=== PATIENT | female | born 1935 | race Caucasian/White ===

== ENCOUNTER 2020-03-31 15:41 | Inpatient (IN) | payer MEDICARE, MEDICAID ==
[~2020-03-31] VITALS: Ht 152.4 cm; Wt 77.1 kg
[~2020-03-31 15:41] MED LIST: ATIVAN; [UNRECOGNIZED DRUG - OTHER]
[2020-03-31] MEDS ORDERED: aspirin (15:51)
[2020-03-31] MEDS ORDERED: diltiazem (15:51)
[2020-03-31] MEDS ORDERED: [UNRECOGNIZED DRUG - OTHER] (15:51)
[2020-03-31] MEDS ORDERED: ACETAMINOPHEN 650MG SUPP PR ONE (16:45)
[2020-03-31] MEDS ORDERED: LEVOFLOXACIN 750MG PREMIX 150 ML IV ONE (16:45)
[2020-03-31 18:32] LABS: BASOPHILS % 0.5 % (0.0-2.0); EOSINOPHILS % 0.2 % (0.0-5.0); HEMATOCRIT. 41.6 % (36.0-48.0); HEMOGLOBIN. 14.2 g/dL (12.0-16.0); LYMPHOCYTES % 20.5 % (20.0-50.0); MEAN CORPUSCULAR HEMOGLOBIN 30.8 pg (28.0-32.0); MEAN CORPUSCULAR VOLUME 90.5 fL (81.0-99.0); MEAN PLATELET VOLUME 10.6 fl (7.4-10.4); NEUTROPHILS % 69.8 % (40.0-76.0); PLATELET 273 x1000/uL (130-400); RED CELL DISTRIBUTION WIDTH 14.3 % (11.6-14.6)
[2020-03-31 18:32] LABS: CLARITY URINE CLOUDY (CLEAR); COLOR URINE YELLOW (YELLOW); KETONES URINE TRACE (NEGATIVE); LEUKOCYTE ESTERASE URINE 2+ (NEGATIVE); NITRITE URINE POSITIVE (NEGATIVE); OCCULT BLOOD URINE 1+ (NEGATIVE); PH URINE 5.5 (4.5-8.0); PROTEIN URINE 2+ (NEGATIVE); SPECIFIC GRAVITY URINE 1.019 (1.005-1.030)
[2020-03-31 18:38] LABS: CHLORIDE 103 mEq/L (98-107)
[2020-03-31 18:40] LABS: INR 1.1; PARTIAL THROMBOPLASTIN TIME 24.6 sec (23.4-31.0); PROTHROMBIN TIME 12.2 sec (9.6-11.0)
[2020-03-31] MEDS ORDERED: ONDANSETRON HCL 4MG/2ML INJ IV PRN (19:15)
[2020-03-31] MEDS ORDERED: TRAMADOL 50MG TABLET PO PRN (19:15)
[2020-03-31] MEDS ORDERED: IPRATROPIUM/ALBUTEROL 0.5-3(2.5)MG/3ML NEB ORI PRN (19:15)
[2020-03-31] MEDS ORDERED: DEXTROSE 50% WATER 50ML SYRINGE IV PRN (19:15)
[2020-03-31] MEDS ORDERED: CLONIDINE 0.1MG TABLET PO PRN (19:15)
[2020-03-31] MEDS ORDERED: MORPHINE SULFATE 2 MG/ML CPJ (NOT FOR IM USE) IV PRN (19:15)
[2020-03-31] MEDS ORDERED: NITROGLYCERIN 0.4MG TABLET SL SL PRN (19:15)
[2020-03-31] MEDS ORDERED: GUAIFENESIN 200MG/10ML SUGAR FREE UDC PO PRN (19:15)
[2020-03-31] MEDS ORDERED: ZOLPIDEM TARTRATE 5MG TABLET PO PRN (19:15)
[2020-03-31] MEDS ORDERED: ACETAMINOPHEN 325MG TABLET PO PRN (19:15)
[2020-03-31] MEDS ORDERED: DOCUSATE SODIUM 100MG CAPSULE PO PRN (19:15)
[2020-03-31] MEDS ORDERED: MAGNESIUM/ALUMINUM HYDROXIDE/SIMETHICONE 30ML UDC PO PRN (19:15)
[2020-03-31 19:43] LABS: T4 FREE 0.58 ng/dL (0.76-1.46)
[2020-03-31] MEDS ORDERED: CEFTRIAXONE 1 G PREMIX 50 ML IV SCH (20:00)
[2020-03-31] MEDS ORDERED: ENOXAPARIN 80MG/0.8ML SYR SUBCUT ONE (20:00)
[2020-03-31] MEDS ORDERED: ENOXAPARIN 80MG/0.8ML SYR SUBCUT SCH (20:00)
[2020-03-31 20:10] LABS: VITAMIN B12 SERUM 464 pg/mL (211-911)
[2020-03-31 20:26] LABS: FOLIC ACID (FOLATE) SERUM > 20.00 ng/mL (>5.38)
[2020-03-31] MEDS ORDERED: ASCORBIC ACID 500 MG TABLET PO SCH (21:00)
[2020-03-31] MEDS ORDERED: AZITHROMYCIN 500 MG in DEXT 5% WATER 250 ML IV SCH (21:00)
[2020-03-31] MEDS ORDERED: FAMOTIDINE 20MG TABLET PO SCH (21:00)
[2020-03-31] MEDS: SODIUM CHLORIDE 0.9% 1,000 ML IV SCH (21:00)
[2020-03-31 21:34] LABS: CREATINE KINASE 124 IU/L (26-192)
[2020-03-31 21:35] LABS: CREATINE KINASE MB FRACTION < 1.0 ng/mL (0.5-3.6)
[2020-04-01 01:00] VITALS: BP 129/78
[2020-04-01 04:00] VITALS: BP 121/75
[2020-04-01 06:01] LABS: CREATINE KINASE MB FRACTION 1.1 ng/mL (0.5-3.6)
[2020-04-01] MEDS: DILTIAZEM HCL 30MG TABLET PO SCH ×3 (06:13→17:03)
[2020-04-01] MEDS: BLOOD SUGAR DIAGNOSTIC STRIP TEST SCH ×4 (07:49→21:28)
[2020-04-01 08:00] VITALS: BP 146/80
[2020-04-01] MEDS: INSULIN LISPRO 100 UNITS/ML SUBCUT SCH ×4 (08:04→21:00)
[2020-04-01] MEDS ORDERED: ENOXAPARIN 80MG/0.8ML SYR SUBCUT SCH (09:00)
[2020-04-01] MEDS: ASCORBIC ACID 500 MG TABLET PO SCH ×2 (09:00→21:28)
[2020-04-01] MEDS ORDERED: ASPIRIN 325MG EC TABLET PO SCH (09:00)
[2020-04-01] MEDS: ZINC SULFATE 220 MG ( 50 ) CAPSULE PO SCH (09:00)
[2020-04-01] MEDS: FAMOTIDINE 20MG TABLET PO SCH ×2 (09:00→21:28)
[2020-04-01] MEDS: ASPIRIN 81MG EC TABLET PO SCH (09:00)
[2020-04-01 12:00] VITALS: BP 148/80
[2020-04-01] MEDS: CEFTRIAXONE 1 G PREMIX 50 ML IV SCH (13:03)
[2020-04-01] MEDS: SODIUM CHLORIDE 0.9% 1,000 ML IV SCH ×2 (13:35→21:32)
[2020-04-01] MEDS: AZITHROMYCIN 500 MG in DEXT 5% WATER 250 ML IV SCH (13:36)
[2020-04-01 16:00] VITALS: BP 144/83
[2020-04-01 20:00] VITALS: BP 141/75
[2020-04-01] MEDS: ENOXAPARIN 60MG/0.6ML SYR SUBCUT SCH (21:28)
[2020-04-02 00:01] VITALS: BP 151/92
[2020-04-02] MEDS: DILTIAZEM HCL 30MG TABLET PO SCH ×4 (00:59→17:15)
[2020-04-02 04:00] VITALS: BP 146/78
[2020-04-02] MEDS: BLOOD SUGAR DIAGNOSTIC STRIP TEST SCH ×4 (06:20→20:12)
[2020-04-02] MEDS: INSULIN LISPRO 100 UNITS/ML SUBCUT SCH ×4 (07:00→20:23)
[2020-04-02 07:21] LABS: BASOPHILS % 0.6 % (0.0-2.0); HEMATOCRIT. 40.8 % (36.0-48.0); HEMOGLOBIN. 13.9 g/dL (12.0-16.0); LYMPHOCYTES % 16.9 % (20.0-50.0); MEAN CORPUSCULAR HEMOGLOBIN 30.7 pg (28.0-32.0); MEAN CORPUSCULAR VOLUME 90.4 fL (81.0-99.0); MEAN PLATELET VOLUME 9.9 fl (7.4-10.4); MONOCYTES % 9.1 % (2.0-8.0); NEUTROPHILS % 72.4 % (40.0-76.0); PLATELET 241 x1000/uL (130-400); RED BLOOD CELL COUNT 4.52 mill/uL (4.2-5.4); RED CELL DISTRIBUTION WIDTH 14.1 % (11.6-14.6)
[2020-04-02 08:00] VITALS: BP 152/77
[2020-04-02 08:08] LABS: CHLORIDE 108 mEq/L (98-107)
[2020-04-02] MEDS: ASPIRIN 81MG EC TABLET PO SCH (08:10)
[2020-04-02] MEDS: ZINC SULFATE 220 MG ( 50 ) CAPSULE PO SCH (08:10)
[2020-04-02] MEDS: FAMOTIDINE 20MG TABLET PO SCH ×2 (08:10→20:12)
[2020-04-02] MEDS: ENOXAPARIN 60MG/0.6ML SYR SUBCUT SCH ×2 (08:10→20:12)
[2020-04-02] MEDS: ASCORBIC ACID 500 MG TABLET PO SCH ×2 (08:11→20:12)
[2020-04-02] MEDS ORDERED: POTASSIUM CHLORIDE 20MEQ TABLET SR PO SCH (09:00)
[2020-04-02] MEDS ORDERED: POTASSIUM CHLORIDE INJ 40 MEQ in DEXT 5% WATER 250 ML IV SCH (10:00)
[2020-04-02 12:00] VITALS: BP 129/81
[2020-04-02] MEDS: CEFTRIAXONE 1 G PREMIX 50 ML IV SCH (13:07)
[2020-04-02] MEDS: SODIUM CHLORIDE 0.9% 1,000 ML IV SCH (13:08)
[2020-04-02] MEDS: AZITHROMYCIN 500 MG in DEXT 5% WATER 250 ML IV SCH (13:32)
[2020-04-02 16:00] VITALS: BP 147/82
[2020-04-02 22:48] VITALS: BP 155/76
[2020-04-03] VITALS: BP 160/81
[2020-04-03] MEDS: DILTIAZEM HCL 30MG TABLET PO SCH ×4 (00:36→17:26)
[2020-04-03] MEDS: SODIUM CHLORIDE 0.9% 1,000 ML IV SCH ×2 (00:45→13:42)
[2020-04-03 04:00] VITALS: BP 162/87
[2020-04-03] MEDS: BLOOD SUGAR DIAGNOSTIC STRIP TEST SCH ×4 (06:29→21:13)
[2020-04-03] MEDS: INSULIN LISPRO 100 UNITS/ML SUBCUT SCH ×4 (06:29→21:34)
[2020-04-03 08:00] VITALS: BP 167/88
[2020-04-03] MEDS: ENOXAPARIN 60MG/0.6ML SYR SUBCUT SCH (08:54)
[2020-04-03] MEDS: FAMOTIDINE 20MG TABLET PO SCH ×2 (08:54→21:35)
[2020-04-03] MEDS: ASCORBIC ACID 500 MG TABLET PO SCH ×2 (08:54→21:35)
[2020-04-03] MEDS: ASPIRIN 81MG EC TABLET PO SCH (08:54)
[2020-04-03] MEDS: ZINC SULFATE 220 MG ( 50 ) CAPSULE PO SCH (08:54)
[2020-04-03 11:48] LABS: BASOPHILS % 0.7 % (0.0-2.0); EOSINOPHILS % 0.7 % (0.0-5.0); HEMATOCRIT. 39.9 % (36.0-48.0); HEMOGLOBIN. 13.7 g/dL (12.0-16.0); LYMPHOCYTES % 17.4 % (20.0-50.0); MEAN CORPUSCULAR VOLUME 90.5 fL (81.0-99.0); MEAN PLATELET VOLUME 11.2 fl (7.4-10.4); NEUTROPHILS % 72.2 % (40.0-76.0); PLATELET 227 x1000/uL (130-400); RED BLOOD CELL COUNT 4.41 mill/uL (4.2-5.4); RED CELL DISTRIBUTION WIDTH 14.2 % (11.6-14.6)
[2020-04-03 11:56] LABS: CHLORIDE 106 mEq/L (98-107)
[2020-04-03 12:00] VITALS: BP 156/77
[2020-04-03 12:02] LABS: PHOSPHORUS 2.2 mg/dL (2.5-4.9)
[2020-04-03] MEDS: ACETAMINOPHEN 325MG TABLET PO PRN ×2 (12:15→21:43)
[2020-04-03] MEDS ORDERED: MAGNESIUM 2 G PREMIX 50 ML IV ONE (14:00)
[2020-04-03] MEDS: CEFTRIAXONE 1 G PREMIX 50 ML IV SCH (14:29)
[2020-04-03] MEDS ORDERED: MAGNESIUM SULFATE 3 GM in DEXTROSE 5% WATER 100 ML IV SCH (15:00)
[2020-04-03] MEDS ORDERED: SODIUM PHOS,M-BASIC-D-BASIC 20 MM in DEXT 5% WATER 243.3333 ML IV SCH (15:00)
[2020-04-03] MEDS: AZITHROMYCIN 500 MG in DEXT 5% WATER 250 ML IV SCH (15:04)
[2020-04-03 16:00] VITALS: BP 140/78
[2020-04-03 20:00] VITALS: BP 117/51
[2020-04-03] MEDS: ENOXAPARIN 80MG/0.8ML SYR SUBCUT SCH (21:35)
[2020-04-04] VITALS: BP 129/65
[2020-04-04 04:00] VITALS: BP 149/77
[2020-04-04] MEDS: INSULIN LISPRO 100 UNITS/ML SUBCUT SCH ×4 (05:55→21:54)
[2020-04-04] MEDS: BLOOD SUGAR DIAGNOSTIC STRIP TEST SCH ×4 (05:55→21:20)
[2020-04-04] MEDS: DILTIAZEM HCL 30MG TABLET PO SCH ×4 (05:58→17:51)
[2020-04-04] MEDS: SODIUM CHLORIDE 0.9% 1,000 ML IV SCH ×3 (05:58→21:53)
[2020-04-04 08:00] VITALS: BP 159/80
[2020-04-04] MEDS: FAMOTIDINE 20MG TABLET PO SCH ×2 (08:47→21:52)
[2020-04-04] MEDS: ZINC SULFATE 220 MG ( 50 ) CAPSULE PO SCH (08:47)
[2020-04-04] MEDS: ENOXAPARIN 80MG/0.8ML SYR SUBCUT SCH ×2 (08:47→21:52)
[2020-04-04] MEDS: ASPIRIN 81MG EC TABLET PO SCH (08:47)
[2020-04-04] MEDS: ASCORBIC ACID 500 MG TABLET PO SCH ×2 (08:47→21:52)
[2020-04-04 12:00] VITALS: BP 152/80
[2020-04-04] MEDS: CEFTRIAXONE 1 G PREMIX 50 ML IV SCH (12:15)
[2020-04-04] MEDS: AZITHROMYCIN 500 MG in DEXT 5% WATER 250 ML IV SCH (13:48)
[2020-04-04 16:00] VITALS: BP 143/72
[2020-04-04] MEDS: CLOPIDOGREL 75MG TABLET PO SCH (16:39)
[2020-04-04 20:04] VITALS: BP 141/68
[2020-04-04] MEDS: ATORVASTATIN CALCIUM 10MG TABLET PO SCH (21:52)
[2020-04-05] VITALS: BP 151/76
[2020-04-05] MEDS: DILTIAZEM HCL 30MG TABLET PO SCH ×4 (00:54→17:21)
[2020-04-05] MEDS: IPRATROPIUM/ALBUTEROL 0.5-3(2.5)MG/3ML NEB HHN SCH ×4 (01:41→21:23)
[2020-04-05 04:00] VITALS: BP 136/63
[2020-04-05] MEDS: BLOOD SUGAR DIAGNOSTIC STRIP TEST SCH ×4 (06:45→22:26)
[2020-04-05] MEDS: INSULIN LISPRO 100 UNITS/ML SUBCUT SCH ×4 (07:15→22:26)
[2020-04-05 08:00] VITALS: BP 134/70
[2020-04-05] MEDS: ASCORBIC ACID 500 MG TABLET PO SCH ×2 (09:31→22:29)
[2020-04-05] MEDS: ZINC SULFATE 220 MG ( 50 ) CAPSULE PO SCH (09:31)
[2020-04-05] MEDS: FAMOTIDINE 20MG TABLET PO SCH ×2 (09:31→22:25)
[2020-04-05] MEDS: CLOPIDOGREL 75MG TABLET PO SCH (09:31)
[2020-04-05] MEDS: ENOXAPARIN 80MG/0.8ML SYR SUBCUT SCH ×2 (09:32→22:26)
[2020-04-05 12:00] VITALS: BP 157/73
[2020-04-05] MEDS: AZITHROMYCIN 500 MG in DEXT 5% WATER 250 ML IV SCH (13:25)
[2020-04-05] MEDS: SODIUM CHLORIDE 0.9% 1,000 ML IV SCH (13:26)
[2020-04-05 16:00] VITALS: BP 146/53
[2020-04-05] MEDS ORDERED: FUROSEMIDE 20MG/2ML VIAL IVP SCH (17:15)
[2020-04-05] MEDS: FUROSEMIDE 40MG/4ML VIAL IVP SCH (17:20)
[2020-04-05] MEDS: CEFTRIAXONE 1 G PREMIX 50 ML IV SCH (17:20)
[2020-04-05] MEDS: POTASSIUM CHLORIDE 20MEQ/PACKET PO SCH (17:20)
[2020-04-05] MEDS: ACETAMINOPHEN 325MG TABLET PO PRN (17:21)
[2020-04-05] MEDS ORDERED: FUROSEMIDE 40MG/4ML VIAL IVP ONE (18:30)
[2020-04-05 20:00] VITALS: BP 136/61
[2020-04-05] MEDS: ATORVASTATIN CALCIUM 10MG TABLET PO SCH (22:25)
[2020-04-06] VITALS: BP 156/73
[2020-04-06] MEDS: IPRATROPIUM/ALBUTEROL 0.5-3(2.5)MG/3ML NEB HHN SCH ×4 (01:28→21:21)
[2020-04-06 04:42] VITALS: BP 152/73
[2020-04-06] MEDS: DILTIAZEM HCL 30MG TABLET PO SCH ×4 (05:41→18:00)
[2020-04-06] MEDS: BLOOD SUGAR DIAGNOSTIC STRIP TEST SCH ×4 (05:41→20:51)
[2020-04-06] MEDS: INSULIN LISPRO 100 UNITS/ML SUBCUT SCH ×4 (05:43→20:41)
[2020-04-06] MEDS: SODIUM CHLORIDE 0.9% 1,000 ML IV SCH ×2 (05:45→22:11)
[2020-04-06 06:09] LABS: BASOPHILS % 0.4 % (0.0-2.0); EOSINOPHILS % 2.7 % (0.0-5.0); HEMATOCRIT. 34.1 % (36.0-48.0); HEMOGLOBIN. 11.8 g/dL (12.0-16.0); LYMPHOCYTES % 15.5 % (20.0-50.0); MEAN CORPUSCULAR HEMOGLOBIN 31.3 pg (28.0-32.0); MEAN CORPUSCULAR VOLUME 90.5 fL (81.0-99.0); MEAN PLATELET VOLUME 10.4 fl (7.4-10.4); MONOCYTES % 10.2 % (2.0-8.0); NEUTROPHILS % 71.2 % (40.0-76.0); PLATELET 278 x1000/uL (130-400); RED BLOOD CELL COUNT 3.77 mill/uL (4.2-5.4); RED CELL DISTRIBUTION WIDTH 13.7 % (11.6-14.6)
[2020-04-06 06:10] LABS: CHLORIDE 103 mEq/L (98-107)
[2020-04-06 08:00] VITALS: BP 146/53
[2020-04-06] MEDS ORDERED: POTASSIUM CHLORIDE 20MEQ/PACKET PO SCH (08:00)
[2020-04-06] MEDS: CLOPIDOGREL 75MG TABLET PO SCH (08:54)
[2020-04-06] MEDS: FAMOTIDINE 20MG TABLET PO SCH ×2 (08:54→20:40)
[2020-04-06] MEDS: ZINC SULFATE 220 MG ( 50 ) CAPSULE PO SCH (08:54)
[2020-04-06] MEDS: ASCORBIC ACID 500 MG TABLET PO SCH ×2 (08:54→20:40)
[2020-04-06] MEDS: FUROSEMIDE 40MG/4ML VIAL IVP SCH ×2 (08:54→18:16)
[2020-04-06] MEDS: POTASSIUM CHLORIDE 20MEQ/PACKET PO SCH ×2 (08:55→18:16)
[2020-04-06] MEDS: ENOXAPARIN 80MG/0.8ML SYR SUBCUT SCH (08:55)
[2020-04-06] MEDS ORDERED: POTASSIUM CHLORIDE INJ 40 MEQ in DEXT 5% WATER 250 ML IV SCH (09:00)
[2020-04-06 12:00] VITALS: BP 139/74
[2020-04-06 16:00] VITALS: BP 140/68
[2020-04-06] MEDS: APIXABAN 2.5 MG TABLET PO SCH (18:22)
[2020-04-06 20:00] VITALS: BP 143/74
[2020-04-06] MEDS: ATORVASTATIN CALCIUM 10MG TABLET PO SCH (20:39)
[2020-04-07] VITALS: BP 146/80
[2020-04-07] MEDS: DILTIAZEM HCL 30MG TABLET PO SCH ×3 (00:02→11:19)
[2020-04-07] MEDS: IPRATROPIUM/ALBUTEROL 0.5-3(2.5)MG/3ML NEB HHN SCH ×2 (01:23→08:21)
[2020-04-07 04:00] VITALS: BP 118/63
[2020-04-07 05:38] LABS: CHLORIDE 103 mEq/L (98-107)
[2020-04-07 05:49] LABS: PHOSPHORUS 2.4 mg/dL (2.5-4.9)
[2020-04-07] MEDS: BLOOD SUGAR DIAGNOSTIC STRIP TEST SCH ×2 (05:54→11:06)
[2020-04-07] MEDS: FUROSEMIDE 40MG/4ML VIAL IVP SCH (05:55)
[2020-04-07] MEDS: INSULIN LISPRO 100 UNITS/ML SUBCUT SCH ×2 (05:56→11:46)
[2020-04-07] MEDS ORDERED: APIX2.5T PO (06:27)
[2020-04-07] MEDS ORDERED: FAMO-135 MT (06:27)
[2020-04-07] MEDS ORDERED: FAMO20TA8 PO (06:27)
[2020-04-07] MEDS ORDERED: ATOR10TA PO (06:27)
[2020-04-07] MEDS ORDERED: ASCO500T20 PO (06:27)
[2020-04-07] MEDS ORDERED: ZINC220C2 PO (06:27)
[2020-04-07] MEDS ORDERED: ASPI-1158 MT (06:27)
[2020-04-07] MEDS ORDERED: MAGN400C MT (06:28)
[2020-04-07 06:48] LABS: BASOPHILS % 0.4 % (0.0-2.0); EOSINOPHILS % 3.7 % (0.0-5.0); HEMOGLOBIN. 12.1 g/dL (12.0-16.0); LYMPHOCYTES % 14.4 % (20.0-50.0); MEAN CORPUSCULAR HEMOGLOBIN 31.2 pg (28.0-32.0); MEAN PLATELET VOLUME 9.9 fl (7.4-10.4); MONOCYTES % 10.4 % (2.0-8.0); NEUTROPHILS % 71.1 % (40.0-76.0); PLATELET 339 x1000/uL (130-400); RED BLOOD CELL COUNT 3.89 mill/uL (4.2-5.4); RED CELL DISTRIBUTION WIDTH 13.8 % (11.6-14.6)
[2020-04-07] MEDS ORDERED: POTASSIUM PHOS,M-BASIC-D-BASIC 15 MMOL in DEXT 5% WATER 245 ML IV ONE (07:00)
[2020-04-07] MEDS ORDERED: MAGNESIUM 4 G PREMIX 100 ML IV ONE (07:00)
[2020-04-07] MEDS: ASCORBIC ACID 500 MG TABLET PO SCH (08:31)
[2020-04-07] MEDS: APIXABAN 2.5 MG TABLET PO SCH (08:32)
[2020-04-07] MEDS: ZINC SULFATE 220 MG ( 50 ) CAPSULE PO SCH (08:33)
[2020-04-07] MEDS: POTASSIUM CHLORIDE 20MEQ/PACKET PO SCH (08:33)
[2020-04-07 08:46] VITALS: BP 154/76
[2020-04-07] MEDS ORDERED: IPRATROPIUM/ALBUTEROL 0.5-3(2.5)MG/3ML NEB HHN SCH (22:00)
== END 2020-04-07 14:00 | disposition home health service (06) | DRG 871 ==
LOC: EDBD 15:41 → ER 15:41 → 7WST 19:03 → SUPCPDRO 19:07 → 5WST 04-01 11:34
PROVIDERS: ADMIT Internal Medicine; ATTEND Internal Medicine
DX: A41.9 Sepsis, unspecified organism (principal); G92 Toxic encephalopathy; I21.4 Non-ST elevation (NSTEMI) myocardial infarction; G82.50 Quadriplegia, unspecified; J18.9 Pneumonia, unspecified organism; I63.9 Cerebral infarction, unspecified; N39.0 Urinary tract infection, site not specified; E44.1 Mild protein-calorie malnutrition; E87.2 Acidosis; I48.19 Other persistent atrial fibrillation; R47.01 Aphasia; E11.9 Type 2 diabetes mellitus without complications; D63.8 Anemia in other chronic diseases classified elsewhere; F17.210 Nicotine dependence, cigarettes, uncomplicated; I11.9 Hypertensive heart disease without heart failure; R32 Unspecified urinary incontinence; Z20.828 Contact with and (suspected) exposure to other viral communicable diseases; E03.9 Hypothyroidism, unspecified; E83.39 Other disorders of phosphorus metabolism; E83.42 Hypomagnesemia; E86.0 Dehydration; E87.6 Hypokalemia; F03.90 Unspecified dementia, unspecified severity, without behavioral disturbance, psychotic disturbance, mood disturbance, and anxiety; R47.1 Dysarthria and anarthria; R65.20 Severe sepsis without septic shock; R13.10 Dysphagia, unspecified; Z87.01 Personal history of pneumonia (recurrent); Z99.3 Dependence on wheelchair; Z79.4 Long term (current) use of insulin; Z86.73 Personal history of transient ischemic attack (TIA), and cerebral infarction without residual deficits; Z68.33 Body mass index [BMI] 33.0-33.9, adult; Z79.899 Other long term (current) drug therapy
CPT/HCPCS: 36415; 70551; 71045; 80048; 80053; 80061; 81003; 82550; 82553; 82607; 82746; 82962; 83036; 83540; 83550; 83605; 83735; 83880; 84100; 84145; 84439; 84443; 84484; 85025; 92523; 92610; 93005; 93306; 93880; 93970; 94640; 97162; 97165; 97168; 99291; J0456; J0696; J1650; J1815; J1940; J1956; J3475; J3480; J3490; J7060; U0003-CS

== ENCOUNTER 2020-06-27 22:08 | Inpatient (IN) | payer MEDICARE, MEDICAID ==
[~2020-06-27] VITALS: Ht 157.5 cm; Wt 62.4 kg
[~2020-06-27 22:08] MED LIST changes: +APIX2.5T PO; +ASCO500T20 PO; +ASPI-1158 MT; -ATIVAN; +ATOR10TA PO; +FAMO-135 MT; +FAMO20TA8 PO; +MAGN400C MT; +ZINC220C2 PO; +[UNRECOGNIZED DRUG - OTHER]; +diltiazem
[2020-06-27] MEDS ORDERED: ONDANSETRON HCL 4MG/2ML INJ IV STA (22:38)
[2020-06-27] MEDS ORDERED: ACETAMINOPHEN 325MG TABLET PO STA (22:38)
[2020-06-27] MEDS ORDERED: CEFTRIAXONE 1 G PREMIX 50 ML IV ONE (22:45)
[2020-06-27] MEDS ORDERED: AZITHROMYCIN 500 MG in DEXT 5% WATER 250 ML IV ONE (22:45)
[2020-06-27 23:09] LABS: BG BASE EXCESS -1.1 mmol/L (-2.0-2.0); BG CARBOXYHEMOGLOBIN 0.8 % (0.5-1.5); BG DEOXYHEMOGLOBIN 0.2 % (0.0-5.0); BG FRACTION INSPIRED OXYGEN 100; BG METHEMOGLOBIN 0.5 % (0.0-1.5); BG OXYGEN SATURATION 99.8 % (92.0-98.5); BG OXYHEMOGLOBIN 98.5 % (94.0-97.0); BG PCO2 36.4 mmHg (35.0-45.0); BG PH 7.418 (7.350-7.450); BG SAMPLE SITE RIGHT RADIAL; BG TOTAL HEMOGLOBIN 14.2 g/dL (12.0-18.0); BG VENT MODE MASK - NRB
[2020-06-27 23:30] LABS: BASOPHILS % 0.5 % (0.0-2.0); EOSINOPHILS % 1.7 % (0.0-5.0); HEMATOCRIT. 42.1 % (36.0-48.0); HEMOGLOBIN. 14.1 g/dL (12.0-16.0); LYMPHOCYTES % 25.8 % (20.0-50.0); MEAN CORPUSCULAR HEMOGLOBIN 30.8 pg (28.0-32.0); MEAN CORPUSCULAR VOLUME 91.9 fL (81.0-99.0); MEAN PLATELET VOLUME 10.5 fl (7.4-10.4); MONOCYTES % 10.1 % (2.0-8.0); NEUTROPHILS % 61.9 % (40.0-76.0); PLATELET 193 x1000/uL (130-400); RED BLOOD CELL COUNT 4.58 mill/uL (4.2-5.4); RED CELL DISTRIBUTION WIDTH 13.6 % (11.6-14.6)
[2020-06-27 23:38] LABS: CHLORIDE 102 mEq/L (98-107)
[2020-06-27 23:39] LABS: INR 1.1; PROTHROMBIN TIME 11.5 sec (9.6-11.0)
[2020-06-28 01:14] LABS: CLARITY URINE CLOUDY (CLEAR); COLOR URINE YELLOW (YELLOW); KETONES URINE TRACE (NEGATIVE); LEUKOCYTE ESTERASE URINE 3+ (NEGATIVE); NITRITE URINE NEGATIVE (NEGATIVE); OCCULT BLOOD URINE TRACE (NEGATIVE); PH URINE 5.5 (4.5-8.0); PROTEIN URINE 2+ (NEGATIVE)
[2020-06-28 08:00] VITALS: BP 157/69
[2020-06-28 08:55] VITALS: BP_SYST 132; BP_SYST 157; BP_DIAS 69
[2020-06-28 09:57] VITALS: BP 157/69
[2020-06-28] MEDS ORDERED: DEXTROSE 50% WATER 50ML SYRINGE IV PRN (10:15)
[2020-06-28] MEDS ORDERED: ONDANSETRON HCL 4MG/2ML INJ IV PRN (10:15)
[2020-06-28] MEDS: BLOOD SUGAR DIAGNOSTIC STRIP TEST SCH ×3 (11:46→21:00)
[2020-06-28 12:00] VITALS: BP 104/49
[2020-06-28] MEDS: INSULIN LISPRO 100 UNITS/ML SUBCUT SCH ×3 (12:31→21:00)
[2020-06-28 16:00] VITALS: BP 126/52
[2020-06-28 20:00] VITALS: BP 168/89
[2020-06-28] MEDS: CLONIDINE 0.1MG TABLET PO PRN (22:38)
[2020-06-28] MEDS: ATORVASTATIN CALCIUM 40MG TABLET PO SCH (22:38)
[2020-06-28] MEDS: CEFTRIAXONE 1,000 MG in DEXTROSE 5% WATER 50 ML IV SCH (22:38)
[2020-06-29] MEDS: BLOOD SUGAR DIAGNOSTIC STRIP TEST SCH ×4 (06:24→21:00)
[2020-06-29 07:45] LABS: BASOPHILS % 0.5 % (0.0-2.0); EOSINOPHILS % 4.4 % (0.0-5.0); HEMATOCRIT. 42.6 % (36.0-48.0); HEMOGLOBIN. 14.1 g/dL (12.0-16.0); LYMPHOCYTES % 19.4 % (20.0-50.0); MEAN CORPUSCULAR HEMOGLOBIN 30.3 pg (28.0-32.0); MEAN CORPUSCULAR VOLUME 91.7 fL (81.0-99.0); MEAN PLATELET VOLUME 10.8 fl (7.4-10.4); MONOCYTES % 10.3 % (2.0-8.0); NEUTROPHILS % 65.4 % (40.0-76.0); PLATELET 188 x1000/uL (130-400); RED BLOOD CELL COUNT 4.64 mill/uL (4.2-5.4); RED CELL DISTRIBUTION WIDTH 13.4 % (11.6-14.6)
[2020-06-29] MEDS: INSULIN LISPRO 100 UNITS/ML SUBCUT SCH ×4 (07:50→22:41)
[2020-06-29 08:00] VITALS: BP 135/66
[2020-06-29 08:25] LABS: CHLORIDE 104 mEq/L (98-107)
[2020-06-29 08:56] VITALS: BP 135/66
[2020-06-29] MEDS ORDERED: DEXAMETHASONE 2MG TABLET PO SCH (09:00)
[2020-06-29] MEDS: AZITHROMYCIN 250 MG TABLET PO SCH (09:31)
[2020-06-29] MEDS ORDERED: TRAMADOL 50MG TABLET PO PRN (11:30)
[2020-06-29] MEDS ORDERED: ACETAMINOPHEN 650MG/20.3ML UDC PO PRN (11:30)
[2020-06-29 12:00] VITALS: BP 131/71
[2020-06-29] MEDS ORDERED: ACETAMINOPHEN 325MG TABLET PO PRN (12:15)
[2020-06-29] MEDS: APIXABAN 2.5 MG TABLET PO SCH ×2 (12:56→18:40)
[2020-06-29] MEDS ORDERED: LEVO500T2 MT (15:09)
[2020-06-29 16:00] VITALS: BP 147/81
[2020-06-29 17:09] VITALS: BP 160/86
[2020-06-29 20:00] VITALS: BP 170/88
[2020-06-29] MEDS: ATORVASTATIN CALCIUM 40MG TABLET PO SCH (21:52)
[2020-06-29] MEDS: CEFTRIAXONE 1,000 MG in DEXTROSE 5% WATER 50 ML IV SCH (22:42)
[2020-06-30] VITALS (7 sets, daily range): BP systolic 109–178; BP diastolic 64–88
[2020-06-30] MEDS: CLONIDINE 0.1MG TABLET PO PRN (04:52)
[2020-06-30] MEDS: BLOOD SUGAR DIAGNOSTIC STRIP TEST SCH ×2 (07:23→12:43)
[2020-06-30] MEDS: APIXABAN 2.5 MG TABLET PO SCH (08:02)
[2020-06-30] MEDS: AZITHROMYCIN 250 MG TABLET PO SCH (08:02)
[2020-06-30] MEDS: INSULIN LISPRO 100 UNITS/ML SUBCUT SCH ×2 (08:03→13:12)
[2020-06-30] MEDS ORDERED: AMLODIPINE 10MG TABLET PO SCH (09:00)
[2020-06-30] MEDS ORDERED: LACTULOSE 20G/30ML UDC PO SCH (11:00)
== END 2020-06-30 18:07 | disposition home health service (06) | DRG 189 ==
LOC: ER 22:08 → 7WST 06-28 → EDBEDREQTM 06-28 00:05 → EDBEDREQDT 06-28 00:05 → EDBEDREQ 06-28 00:05 → ENRESERV 06-28 07:36 → 6WST 06-28 23:15
PROVIDERS: ADMIT Internal Medicine; ATTEND Internal Medicine
DX: J96.01 Acute respiratory failure with hypoxia (principal); J18.9 Pneumonia, unspecified organism; E44.1 Mild protein-calorie malnutrition; E87.2 Acidosis; G93.40 Encephalopathy, unspecified; N39.0 Urinary tract infection, site not specified; Z20.828 Contact with and (suspected) exposure to other viral communicable diseases; E11.9 Type 2 diabetes mellitus without complications; E78.00 Pure hypercholesterolemia, unspecified; E78.5 Hyperlipidemia, unspecified; I10 Essential (primary) hypertension; I48.91 Unspecified atrial fibrillation; Z79.01 Long term (current) use of anticoagulants; Z86.73 Personal history of transient ischemic attack (TIA), and cerebral infarction without residual deficits; Z68.25 Body mass index [BMI] 25.0-25.9, adult
CPT/HCPCS: 36415; 36600; 71045; 80048; 80053; 81003; 82375; 82805; 82962; 83605; 84145; 84484; 85025; 87077; 87186; 87635; 92610; 93005; 93970; 99291; J0456; J0696; J1815; J2405; J7060; J8540